=== PATIENT | male | born 1950 | race African-American/Black ===

== ENCOUNTER 2016-06-26 11:02 | Emergency (ER) | payer OTHER, BC ==
[~2016-06-26] VITALS: Ht 180.3 cm; Wt 79.3 kg
[~2016-06-26 11:02] MED LIST: ASPIR-LOW81 MG PO; CARVEDILOL25 MG PO; CIPRO500 MG PO; COLACE100 MG PO; COREG6.25 M1 PO; COZAAR25 MG PO; DOCUSATE SODIU100 MG PO; FLAGYL500 MG PO; FUROSEMIDE40 MG PO; KEFLEX250 MG PO; LASIX40 MG PO; LEVAQUIN750 MG PO; LIBRIUM25 MG PO; LOSARTAN POTAS100 MG PO; NITROSTAT0.4 MG SL; PANTOPRAZOLE SO40 MG PO; POTASSIUM CHLO10 ME3 PO; SPIRONOLACTONE25 MG PO; TEARS NATURALE-15 ML BOTH EYES; ULTRAM50 MG PO; VENTOLIN HFA18 GM IH; ZOFRAN ODT4 MG PO
[2016-06-26 11:59] LABS: CHLORIDE 110 mEq/L (99-109); POTASSIUM 3.7 mEq/L (3.7-5.4); SODIUM 143 mEq/L (136-147)
[2016-06-26 12:01] LABS: GLUCOSE 102 mg/dL (70-99)
[2016-06-26 12:02] LABS: ANION GAP 9 MEQ/L (2-14)
[2016-06-26 12:05] LABS: GFR ESTIMATE (CALCULATED) > 59 mL/min/
[2016-06-26 12:06] LABS: UREA NITROGEN (BUN) 14 mg/dL (9-23)
[2016-06-26 12:10] LABS: TROP-I INTERPRETATION NEGATIVE; TROPONIN-I 0.02 ng/mL (0.0-0.30)
[2016-06-26 14:43] LABS: TROP-I INTERPRETATION NEGATIVE; TROPONIN-I 0.02 ng/mL (0.0-0.30)
[2016-06-26 14:47] LABS: D-DIMER ELISA 0.75 mg/L FEU (< 0.57)
[2016-06-26 15:28] LABS: HEMATOCRIT 46.3 % (38.0-50.0); HEMATOLOGY COMMENT 1 SMEAR COMPATIBLE; MCH 32.2 PG (29.0-34.0); MCHC 33.7 G/DL (30.0-36.0); MCV 95.5 FL (86-99); MEAN PLAT.VOLUME 12.4 uM^3 (9.0-12.4); PLATELET COUNT 142 K/uL (156-360); RBC DIS.WIDTH-SD 47.2 % (39-53); RED BLOOD COUNT 4.85 M/uL (4.00-5.50); WHITE BLOOD COUNT 5.2 K/uL (4.1-10.2)
[2016-06-26] MEDS ORDERED: FLEXERIL10 MG PO (16:08)
[2016-06-26] MEDS ORDERED: IBUPROFEN800 MG PO (16:08)
[2016-06-26] MEDS ORDERED: CARVEDILOL12.5 MG PO (16:16)
[2016-06-26 16:17] VITALS: BP 142/82
== END 2016-06-26 16:18 | disposition home or self-care (01) ==
LOC: EME 11:02
PROVIDERS: Nurse Practitioner Family
DX: M94.0 Chondrocostal junction syndrome [Tietze] (principal); J44.9 Chronic obstructive pulmonary disease, unspecified; R05 Cough; I10 Essential (primary) hypertension; K21.9 Gastro-esophageal reflux disease without esophagitis; F17.200 Nicotine dependence, unspecified, uncomplicated
CPT/HCPCS: 71020; 71275; 80048; 84484; 85027; 85379; 93005; 99281; 99285; J1885

== ENCOUNTER 2016-08-14 17:39 | Observation (INO) | payer OTHER, BC ==
[~2016-08-14] VITALS: Ht 180.3 cm; Wt 77.9 kg
[~2016-08-14 17:39] MED LIST changes: +CARVEDILOL12.5 MG PO; +FLEXERIL10 MG PO; +IBUPROFEN800 MG PO
[2016-08-14 18:38] LABS: HEMATOCRIT 42.4 % (38.0-50.0); MCH 31.2 PG (29.0-34.0); MCV 94.4 FL (86-99); MEAN PLAT.VOLUME 11.8 uM^3 (9.0-12.4); PLATELET COUNT 183 K/uL (156-360); RBC DIS.WIDTH-CV 13.1 % (11.8-14.6); RBC DIS.WIDTH-SD 45.5 % (39-53); RED BLOOD COUNT 4.49 M/uL (4.00-5.50)
[2016-08-14 18:52] LABS: CHLORIDE 105 mEq/L (99-109); POTASSIUM 3.7 mEq/L (3.7-5.4); SODIUM 139 mEq/L (136-147)
[2016-08-14 18:54] LABS: GLUCOSE 90 mg/dL (70-99)
[2016-08-14 18:55] LABS: ANION GAP 9 MEQ/L (2-14)
[2016-08-14 18:56] LABS: TOTAL BILIRUBIN 0.8 mg/dL (0.0-1.0)
[2016-08-14 18:58] LABS: ALKALINE PHOSPHATASE 86 IU/L (3-129); GFR ESTIMATE (CALCULATED) > 59 mL/min/
[2016-08-14 18:59] LABS: UREA NITROGEN (BUN) 11 mg/dL (9-23)
[2016-08-14 19:08] LABS: TROP-I INTERPRETATION NEGATIVE; TROPONIN-I 0.02 ng/mL (0.0-0.30)
[2016-08-14] MEDS ORDERED: NITROSTAT0.4 MG SL (19:54)
[2016-08-14] MEDS ORDERED: EXCEDRIN EXTRA1 EACH PO (19:54)
[2016-08-14 20:13] LABS: D-DIMER ELISA 0.79 mg/L FEU (< 0.57)
[2016-08-14 22:31] LABS: EOSINOPHIL (%) 2.4 % (0-5); EOSINOPHIL COUNT 0.1 K/uL (0-0.3); IMMATURE GRANULOCYTE (%) 0.5 % (0.0-0.7); INSTRUMENT ABS NEUTROPHIL CT 1.8 K/uL; LYMPHOCYTE COUNT 1.3 K/uL (1.0-2.8); MCH 31.2 PG (29.0-34.0); MCHC 33.3 G/DL (30.0-36.0); MCV 93.9 FL (86-99); MEAN PLAT.VOLUME 12.4 uM^3 (9.0-12.4); NEUTROPHIL (%) 43.1 % (45-76); NEUTROPHIL COUNT 1.8 K/uL (1.8-6.4); RBC DIS.WIDTH-CV 13.2 % (11.8-14.6); RBC DIS.WIDTH-SD 45.2 % (39-53); RED BLOOD COUNT 4.58 M/uL (4.00-5.50); WHITE BLOOD COUNT 4.2 K/uL (4.1-10.2)
[2016-08-14 22:39] LABS: PLATELET COUNT UNABLE TO REPORT K/uL (156-360)
[2016-08-14 22:40] LABS: ABS NEUTROPHIL COUNT 2.2; ANISOCYTOSIS 1+; ATYPICAL LYMPHOCYTE 3.6 %; BAND NEUTROPHILS 7.3 % (0-8.0); BASOPHILS 0.9 %; EOSINOPHIL ABS CT 0; EOSINOPHILS 0.9 % (0-5.0); INSTRUMENT ABS NEUTROPHIL CT 2.2 K/uL; LYMPHOCYTES 25.5 % (15.0-45.0); MACROCYTES 1+; PLAT.SUFFICIENCY ADEQUATE; SEG.NEUTROPHILS 37.3 % (46.0-76.0); SMUDGE CELLS 11.8
[2016-08-14 22:42] LABS: INTER. NORMALIZED RATIO 1.1; PROTHROMBIN TIME 11.4 (9.2-11.2); PTT 33.4 (25-32)
[2016-08-14 22:47] LABS: ANION GAP 9 MEQ/L (2-14); CHLORIDE 105 MEQ/L (99-109); GFR ESTIMATE (CALCULATED) > 59 mL/min/; GLUCOSE 92 mg/dL (70-99); POTASSIUM 3.6 MEQ/L (3.7-5.4); SAMPLE HEMOLYSIS CHECK 0; SAMPLE ICTERIC CHECK 0; SAMPLE LIPEMIA CHECK 0; SODIUM 137 MEQ/L (136-147); UREA NITROGEN (BUN) 10 mg/dL (9-23)
[2016-08-15] VITALS (7 sets, daily range): BP systolic 131–163; BP diastolic 87–99
[2016-08-15 01:25] LABS: TROP-I INTERPRETATION NEGATIVE; TROPONIN-I 0.02 ng/mL (0.0-0.30)
[2016-08-15 07:27] LABS: TROP-I INTERPRETATION NEGATIVE; TROPONIN-I 0.02 ng/mL (0.0-0.30)
[2016-08-15 13:28] LABS: INFLUENZA A VIRAL ANTIGEN NEGATIVE; INFLUENZA B VIRAL ANTIGEN POSITIVE
[2016-08-16 05:06] VITALS: BP 170/104
[2016-08-16 05:35] VITALS: BP 160/84
[2016-08-16 07:33] LABS: ANION GAP 8 MEQ/L (2-14); CHLORIDE 106 MEQ/L (99-109); GFR ESTIMATE (CALCULATED) > 59 mL/min/; GLUCOSE 88 mg/dL (70-99); POTASSIUM 4.1 MEQ/L (3.7-5.4); SAMPLE HEMOLYSIS CHECK 0; SAMPLE ICTERIC CHECK 0; SAMPLE LIPEMIA CHECK 0; SODIUM 140 MEQ/L (136-147); UREA NITROGEN (BUN) 13 mg/dL (9-23)
[2016-08-16 07:56] VITALS: BP 158/101
[2016-08-16 10:41] VITALS: BP 150/90
[2016-08-16] MEDS ORDERED: NICOTINE PATCH1 EAC2 TD (12:28)
[2016-08-16] MEDS ORDERED: OSELTAMIVIR PHO75 MG PO (12:29)
[2016-08-16] MEDS ORDERED: ROBITUSSIN AC,T10 ML PO (12:29)
[2016-08-16] MEDS ORDERED: IMDUR30 MG PO (12:44)
[2016-08-17 12:30] LABS: EOSINOPHIL (%) 1.7 % (0-5); EOSINOPHIL COUNT 0.1 K/uL (0-0.3); HEMATOCRIT 42.5 % (38.0-50.0); IMMATURE GRANULOCYTE (%) 0.6 % (0.0-0.7); INSTRUMENT ABS NEUTROPHIL CT 2.3 K/uL; LYMPHOCYTE COUNT 1.3 K/uL (1.0-2.8); MCH 31.2 PG (29.0-34.0); MCHC 31.5 G/DL (30.0-36.0); MEAN PLAT.VOLUME 13.3 uM^3 (9.0-12.4); MONOCYTE (%) 18.8 % (3-12); MONOCYTE COUNT 0.9 K/uL (0-0.8); NEUTROPHIL (%) 49.9 % (45-76); NEUTROPHIL COUNT 2.3 K/uL (1.8-6.4); RBC DIS.WIDTH-SD 50.6 % (39-53); RED BLOOD COUNT 4.29 M/uL (4.00-5.50); WHITE BLOOD COUNT 4.7 K/uL (4.1-10.2)
[2016-08-17 14:14] LABS: MCV 99.1 FL (86-99); PLATELET COUNT 166 K/uL (156-360)
== END 2016-08-16 14:32 | disposition home or self-care (01) ==
LOC: EME 17:39 → EDOF 20:30 → 5WEST 20:30
PROVIDERS: Emergency Medicine; Family Medicine
DX: R07.89 Other chest pain (principal); J10.1 Influenza due to other identified influenza virus with other respiratory manifestations; R94.31 Abnormal electrocardiogram [ECG] [EKG]; I25.10 Atherosclerotic heart disease of native coronary artery without angina pectoris; I11.0 Hypertensive heart disease with heart failure; I50.9 Heart failure, unspecified; J44.9 Chronic obstructive pulmonary disease, unspecified; F17.210 Nicotine dependence, cigarettes, uncomplicated; E78.5 Hyperlipidemia, unspecified; I42.9 Cardiomyopathy, unspecified
CPT/HCPCS: 71010; 71275; 80048; 80048 91; 80053; 84484; 85025; 85025 91; 85379; 85610; 85730; 87502; 93005; 94640; 94640 76; 99202; 99281; 99285; G0378; J1650

== ENCOUNTER 2017-08-26 13:27 | Emergency (ER) | payer OTHER, BC ==
[~2017-08-26] VITALS: Ht 180.3 cm; Wt 82.0 kg
[~2017-08-26 13:27] MED LIST changes: +EXCEDRIN EXTRA1 EACH PO; +IMDUR30 MG PO; +NICOTINE PATCH1 EAC2 TD; +OSELTAMIVIR PHO75 MG PO; +ROBITUSSIN AC,T10 ML PO
[2017-08-26 14:51] LABS: HEMATOCRIT 43.8 % (38.0-50.0); HEMOGLOBIN 14.7 G/DL (12.5-16.6); MCHC 33.6 G/DL (30.0-36.0); MCV 95.2 FL (86-99); PLATELET COUNT 171 K/uL (156-360); RBC DIS.WIDTH-CV 13.8 % (11.8-14.6); RBC DIS.WIDTH-SD 48.1 % (39-53); WHITE BLOOD COUNT 6.8 K/uL (4.1-10.2)
[2017-08-26 14:59] LABS: CHLORIDE 105 mEq/L (99-109); SODIUM 140 mEq/L (136-147)
[2017-08-26 15:01] LABS: GLUCOSE 97 mg/dL (70-99)
[2017-08-26 15:05] LABS: CREATININE 1.4 mg/dL (0.6-1.3); GFR ESTIMATE (CALCULATED) > 59 mL/min/ (58.99-99999)
[2017-08-26 15:06] LABS: UREA NITROGEN (BUN) 16 mg/dL (9-23)
[2017-08-26 15:11] LABS: TROP-I INTERPRETATION NEGATIVE; TROPONIN-I 0.02 ng/mL (0.0-0.30)
[2017-08-26 18:39] LABS: TROP-I INTERPRETATION NEGATIVE; TROPONIN-I 0.02 ng/mL (0.0-0.30)
[2017-08-26 18:55] VITALS: BP 156/84
== END 2017-08-26 18:56 | disposition home or self-care (01) ==
LOC: EME 13:27
PROVIDERS: Physician Assistant
DX: R07.9 Chest pain, unspecified (principal); I11.0 Hypertensive heart disease with heart failure; I50.9 Heart failure, unspecified; F17.200 Nicotine dependence, unspecified, uncomplicated; Z71.6 Tobacco abuse counseling; K21.9 Gastro-esophageal reflux disease without esophagitis; Z85.46 Personal history of malignant neoplasm of prostate; R56.9 Unspecified convulsions
CPT/HCPCS: 71046; 80048; 84484; 85027; 93005; 99281; 99284